=== PATIENT | male | born 1975 | race Caucasian/White ===

== ENCOUNTER 2018-11-19 23:42 | Emergency (ER) | payer OTHER ==
[2018-11-19 23:52] VITALS: BP 106/62; PULSE 68; TEMP 98.2; BMI 23.1
--- NOTE | 2018-11-20 00:11 | PDOC ---
History of Present Illness - General Chief Complaint: Injury Stated Complaint: FINGER LAC Time Seen by Provider: 11/19/18 23:54 History Source: Patient Exam Limitations: No Limitations - History of Present Illness Initial Comments: 11/20/18 00:07 This is a 43-year-old male who comes in complaining of a laceration to his left thumb. 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 Patient otherwise is healthy. Patient's tetanus was less than 5 years ago. Patient applied crazy glue to the thumb and by the time he got here it had been bleeding and was glued shut Allergies: as per nursing notes Past Medical History: none Social history: Lives with family. No smoking. No alcohol. No illicit drugs. Surgical history: None General: No fevers or chills, no weakness, no weight loss HEENT: No change in vision. No sore throat,. No ear pain CardioVascular: no chest discomfort. No shortness of breath Respiratory:No cough, or wheezing. Gastrointestinal: no nausea, vomiting, diarrhea or constipation, No rectal bleeding Genitourinary: No dysuria, hematuria, or frequency Musculoskeletal: No joint or muscle pain or swelling laceration to left thumb Neurologic: No headache, vertigo, dizziness or loss of consciousness Psychiatric: nor depression Skin: No rashes or easy bruising Endocrine: no increased thirst or abnormal weight change Allergic: no skin or latex allergy All other systems reviewed and normal GENERAL: The patient is awake, alert, and fully oriented, in no acute distress. HEAD: Normal with no signs of trauma. EYES: Pupils equal, round and reactive to light, extraocular movements intact, sclera anicteric, conjunctiva clear. EXTREMITIES:atraumatic, Normal range of motion, no edema. Left thumb: There is a proximally 1 cm laceration to the ulnar surface of the distal phalanx of the thumb. Wound has been sealed with crazy glue that the patient applied. Neurovascular is intact. NEUROLOGICAL: Normal speech, normal gait. PSYCH: Normal mood, normal affect. SKIN: Warm, Dry, normal turgor, no rashes or lesions noted. Assessment and plan: This is a 43-year-old male with a laceration to his left thumb that he closed himself with crazy glue. Patient discharged home, tetanus was not required as he was up-to-date. Past History - Past Medical History Allergies/Adverse Reactions: Allergies Allergy/AdvReac Type Severity Reaction Status Date / Time lactase [From [facility] [facility]] Allergy Verified 11/19/18 23:46 Home Medications: Ambulatory Orders NK [No Known Home Medication] 11/19/18 COPD: No - Immunization History Td Vaccination: Yes - Suicide/Smoking/Psychosocial Hx Smoking History: Never smoked *Physical Exam - Vital Signs Last Vital Signs Temp Pulse Resp BP Pulse Ox 98.2 F 68 16 106/62 98 11/19/18 23:47 11/19/18 23:47 11/19/18 23:47 11/19/18 23:47 11/19/18 23:47 *DC/Admit/Observation/Transfer Diagnosis at time of Disposition: Laceration of left thumb Qualifiers: Encounter type: initial encounter Damage to nail status: without damage Foreign body presence: without foreign body Qualified Code(s): S61.012A - Laceration without foreign body of left thumb without damage to nail, initial encounter - Discharge Dispostion Disposition: HOME Condition at time of disposition: Stable Decision to Admit order: No - Referrals - Patient Instructions Printed Discharge Instructions: DI for Laceration Repair With [facility]erm[facility] Additional Instructions: Read over and follow the [facility]erm[facility] instructions. Return to the emergency department immediately with ANY new, persistent or worsening symptoms. Continue any medications as previously prescribed by your physician. You should follow up with your primary doctor as soon as possible regarding today's emergency department visit. . Please make sure your doctor reviews the results of your emergency evaluation. Thank you for coming to the Emergency Department today for your care. It was a pleasure to see you today. Please note that your evaluation is INCOMPLETE until you follow-up with your doctor. - Post Discharge Activity
== END 2018-11-20 00:13 | disposition home or self-care (01) ==
LOC: FER 23:42
PROC: 0HQFXZZ Repair Right Hand Skin, External Approach (ICD-10-PCS; principal; 2018-11-19)
DX: S61.012A Laceration without foreign body of left thumb without damage to nail, initial encounter (principal); W26.0XXA Contact with knife, initial encounter; Y93.G1 Activity, food preparation and clean up; Y92.89 Other specified places as the place of occurrence of the external cause; Y99.0 Civilian activity done for income or pay
CPT/HCPCS: 99281-25

== ENCOUNTER 2023-04-17 17:16 | Emergency (ER) | payer OTHER ==
[2023-04-17 17:32] VITALS: PULSE 64; RESP 16; TEMP 97.9; BMI 23.1
[2023-04-17] MEDS ORDERED: ACETAMINOPHEN 500 MG TABLET (FP) PO ONE (17:49)
[2023-04-17] MEDS ORDERED: ACETAMINOPHEN 500 MG TABLET (FP) ONE (17:51)
[2023-04-17 18:08] VITALS: BP 98/61
== END 2023-04-17 18:49 | disposition home or self-care (01) ==
LOC: FER 17:16
DX: S62.316A Displaced fracture of base of fifth metacarpal bone, right hand, initial encounter for closed fracture (principal); M79.641 Pain in right hand; R22.31 Localized swelling, mass and lump, right upper limb; W22.09XA Striking against other stationary object, initial encounter; Y99.0 Civilian activity done for income or pay
CPT/HCPCS: 73130-TC-RT-FY; 99283-25